=== PATIENT | male | born 1990 | race Caucasian/White ===

== ENCOUNTER → 2016-08-15 | Outpatient (CLI) | payer BC ==
--- NOTE | 2016-08-16 05:54 | REP ---
Clinical: Lower back pain. Technique: AP, lateral, and coned-down views of the lumbosacral spine. Findings: Mild disc space narrowing at the L5-S1 level is appreciated. Remainder examination appears normal. No acute fracture / compression injury or subluxation. Normal alignment and lordosis noted. Impression: Mild disc space narrowing at the L5-S1 level. Signed by Italo Barney MD 08/16/2016 05:45 A
== END ==
LOC: M ADAMS 18:11
PROVIDERS: ATTEND Physician Assistant
DX: M51.27 Other intervertebral disc displacement, lumbosacral region (principal)

== ENCOUNTER 2016-11-24 09:47 | Emergency (ER) | payer BC ==
[~2016-11-24] VITALS: Ht 180.3 cm; Wt 72.7 kg
[2016-11-24 09:47] VITALS: BP 133/74
[2016-11-24] MEDS ORDERED: NAPR500T3 PO (09:53)
[2016-11-24] MEDS ORDERED: VALI5TAB PO (10:35)
[2016-11-24] MEDS ORDERED: PRED20TA PO (10:35)
== END 2016-11-24 11:08 | disposition home or self-care (01) ==
LOC: M ED 09:47
DX: M54.41 Lumbago with sciatica, right side (principal)

== ENCOUNTER → 2023-09-20 | Outpatient (REF) | payer OTHER ==
[~2023-09-20] MED LIST: NAPR-885 PO; PRED20TA PO; VALI5TAB PO
[2023-09-22 09:29] LABS: SEMEN APPEARANCE OPAQUE (OPAQUE)
[2023-09-22 09:30] LABS: SEMEN VISCOSITY LIQUID (LIQUID); SPERM CONCENTRATION 64.9 M/ml (>=15.0); WBC CONCENTRATION >1 M/ml (<=1 M/ml)
== END ==
LOC: M LAB REF 09:10
PROVIDERS: ATTEND Physician Assistant Medical
DX: N46.9 Male infertility, unspecified (principal)